=== PATIENT | female | born 1945 | race Caucasian/White ===

== ENCOUNTER 2016-10-11 05:36 | Inpatient (IN) | payer MEDICARE, BC ==
[2016-10-11] MEDS ORDERED: Scopolamine 1.5 MG Transdermal Patch TOP SCH (06:00)
[2016-10-11] MEDS: Lactated Ringers 1,000 ML IV SCH ×2 (06:36→23:00)
[2016-10-11] MEDS ORDERED: Thrombin (Bovine) 5,000 Unit Kit ONE (06:46)
[2016-10-11] MEDS ORDERED: Povidone-Iodine 10% Soln 118.25 ML Bottle ONE (06:46)
[2016-10-11] MEDS ORDERED: ceFAZolin 2 GM in Premix Bag 1 BAG IV ONE (07:15)
[2016-10-11] MEDS ORDERED: Dexamethasone 4 MG/ML SDV ONE (07:21)
[2016-10-11] MEDS ORDERED: Ondansetron 4 MG/2 ML SDV ONE (07:21)
[2016-10-11] MEDS ORDERED: fentaNYL 250 MCG/5 ML SDV ONE ×2 (07:21→08:45)
[2016-10-11] MEDS ORDERED: Rocuronium 50 MG/5 ML Vial ONE ×2 (07:21→08:22)
[2016-10-11] MEDS ORDERED: Neostigmine Methylsulfate 1 MG/ML 5 ML Syringe ONE (07:21)
[2016-10-11] MEDS ORDERED: Propofol 200 MG/20 ML SDV ONE (07:21)
[2016-10-11] MEDS ORDERED: Ketamine 500 MG/5 ML MDV IV SCH (07:45)
[2016-10-11] MEDS ORDERED: Ropivacaine 49.25 ML, Ketorolac 30 MG, EPINEPHrine 0.5 MG, cloNIDine 80 MCG, Sodium Chl... INJECT ONE ×5 (07:45)
[2016-10-11] MEDS ORDERED: Tranexamic Acid 820 MG in Sodium Chloride 0.9% 50 ML IV SCH (07:45)
[2016-10-11] MEDS: ceFAZolin 2 GM in Sodium Chloride 0.9% 50 ML IV ONE ×2 (08:04→12:03)
[2016-10-11] MEDS: Tranexamic Acid 850 MG in Sodium Chloride 0.9% 50 ML IV SCH ×2 (08:05→11:12)
[2016-10-11] MEDS ORDERED: Lactated Ringers 1,000 ML ONE (08:43)
[2016-10-11] MEDS ORDERED: ePHEDrine 50 MG/ML SDV ONE (09:01)
[2016-10-11] MEDS ORDERED: Aluminum Hydroxide/Magnesium Hydroxide/Simethicone Susp 30 ML Cup PO PRN (10:51)
[2016-10-11] MEDS ORDERED: Magnesium Hydroxide 400 MG/5 ML Susp 30 ML Cup PO PRN (10:51)
[2016-10-11] MEDS ORDERED: Sodium Chloride 0.9% 10 ML Syringe FLUSH PRN (10:51)
[2016-10-11] MEDS ORDERED: Sennosides 8.6 MG Tab PO PRN (10:51)
[2016-10-11] MEDS ORDERED: HYDROmorphone 1 MG/ML Syringe IVPUSH PRN (10:51)
[2016-10-11] MEDS ORDERED: Ondansetron 4 MG/2 ML SDV IVPUSH PRN (10:51)
[2016-10-11] MEDS ORDERED: Zolpidem 5 MG Tab PO PRN (10:51)
[2016-10-11] MEDS ORDERED: Naloxone 0.4 MG/ML SDV IVPUSH PRN (10:51)
[2016-10-11] MEDS ORDERED: Bumetanide 1 MG Tab PO PRN (10:55)
[2016-10-11] MEDS ORDERED: Levothyroxine 50 MCG Tab PO SCH (11:00)
[2016-10-11] MEDS ORDERED: ceFAZolin 2 GM in Sodium Chloride 0.9% 50 ML IV SCH (11:00)
[2016-10-11] MEDS ORDERED: fentaNYL 100 MCG/2 ML SDV IVPUSH ONE (11:15)
--- NOTE | 2016-10-11 11:38 | OR ---
DATE OF PROCEDURE: 10/11/2016 PREOPERATIVE DIAGNOSES: 1. L3-L4 and L4-L5 stenosis. 2. L3-L4 and L4-L5 radiculopathy. 3. Spondylolisthesis, L4-L5. POSTOPERATIVE DIAGNOSES: 1. L3-4 and L4-L5 stenosis. 2. L3-4 and L4-L5 radiculopathy. 3. Spondylolisthesis, L4-L5. PROCEDURE: 1. Transforaminal lumbar interbody fusion, L3-L4 and L4-L5. 2. Posterior lateral fusion with interbody device placement, L3-L4, L4-L5. 3. Laminectomy at L3-4 and L4-L5 which was required in addition to the decompression for implantation. 4. Segmental instrumentation, L3-L4 and L4-L5. ANESTHESIA: General endotracheal intubation. FLUID: Lactated Ringer solution. ESTIMATED BLOOD LOSS: 150 mL. COMPLICATIONS: None. SPECIMEN: None. DISCHARGE DISPOSITION: Stable to PACU. INDICATION FOR THE PROCEDURE: The patient is seen preoperatively by myself in the clinic. She was found to have the above-mentioned diagnosis. Preoperative imaging confirmed the above-mentioned diagnosis. Risks and benefits of the procedure were explained to the patient. Informed consent was obtained. DESCRIPTION OF PROCEDURE: The patient was seen preoperatively by myself and the Anesthesia Staff in the preop holding area where the operative site was marked. She was brought to the operative suite by Anesthesia staff where general anesthesia was administered. Neuromonitoring leads were placed. Sterile Martines catheter was placed. The fluoroscopy unit was draped in a sterile manner. The patient was then flipped onto a Shelton table in a prone position with the bed flexed. Neuro monitoring leads were normal at baseline. All extremities found to be well padded. The patient was then prepped and draped in a sterile manner. Time-out was called identifying the correct patient, correct procedure, correct site, and antibiotics had been with appropriate period of time. The fluoroscopy unit was then used in a lateral position to identify the pedicles of L5 through L3. Midline incision was used going over this and then brought down to the deep fascia. Cerebellars were used for retraction. Bleeding was during this case was controlled with Bovie electrocautery, bipolar electrocautery, and an Aquamantys 5.0 unit. Dissection was then carried down over the spinous processes of L3 through L5 with their respective lamina and transverse processes bilaterally. The screws were placed on the left first and then the right. Screw placement was done as follows the facets were cleared of any soft tissue. The facets were then drilled down to the level of the pars and then a small factory laborer hole was made. A PediGuard unit was used for pedicle track placement followed by pedicle probe to ensure that there was no breach followed by stabbing followed by pedicle probe, followed by screw placement. All screws were 50 mm x 6.5 mm, this was done on the left. X-rays were taken on the right. X- rays were taken. All screws tested above 20. We then moved on to our laminectomy. I then cleared all of our soft tissue over the cranial aspect of L5 of the entirety of L4 in the caudal aspect of L3. We then removed the entire spinous process of L4, the caudal aspect of the spinous process of L3 and the cranial aspect of the spinous process of L5. I drilled down the bilateral lamina and then using a Lyn was able to remove the lamina on block without touching the dura. We then carefully removed the caudal aspect of the L3 lamina and the cranial aspect of the L5 lamina to ensure adequate decompression. No durotomy was encountered. I then used a rongeur as well as a drill and Kerrisons to perform facetectomies on the left at L3-L4 and L4-L5. The exiting nerve roots were identified. I stayed to call those and medial to the traversing root. I used dural nerve root retractor and then used a #15 blade to enter the disk space followed by sequential shaving, followed by pituitary curettes and then pituitaries again to remove any disc. There was minimal disc left. I then used a bone funnel to enter the cranial aspect of the space and then tamped the autograft, which had been ground down with a bone mill in combination with Globus Signify allograft. After this was placed in the cranial disc space, I then inserted our spacers. This was an 8 x 22, 8-14 10 degree at L3-4 and a 10 x 26 8-15 10 degree at L4-5. I used fluoroscopy to ensure that we were cranial enough. We then distracted on the expandable spacers. After this had been accomplished, I then irrigated with 2 L of Betadine infused irrigation and then drilled down the transverse processes on the right side as well as the facets and placed the graft over the transverse processes in the posterior lateral gutters. We then attached our tulips to our Creo amp screws followed by attachment of a 60 mm soledad on the left and a 65 mm soledad on the right. These were torqued. I did have some reduction on the left side from the spondylolisthesis. We then took final films. We then closed with #2 Vicryl in an interlocking manner followed by #2 Vicryl in a running manner followed by another liter of Betadine infused irrigation followed by deep subcu 0 interrupted sutures followed by superficial 2-0 interrupted sutures followed by Monocryl followed by sterile dressing. Neuromonitoring were discontinued, was normal throughout the case except at one point, where there was an anterior tip response on the right just for a few moments, which went away almost instantly with different track placement of the PediGuard. We then flipped the patient back into the hospital bed to remove neuro monitoring leads and then taken to the PACU in stable condition. Nicanor Luis DO /[id number]
[2016-10-11] MEDS: Levothyroxine 50 MCG Tab PO SCH (13:57)
[2016-10-11] MEDS: ceFAZolin 2 GM in Sodium Chloride 0.9% 50 ML IV SCH (15:53)
[2016-10-11] MEDS: Acetaminophen/oxyCODONE 325-5 MG Tab PO PRN (18:07)
[2016-10-12] MEDS: ceFAZolin 2 GM in Sodium Chloride 0.9% 50 ML IV SCH ×2 (00:10→08:33)
[2016-10-12] MEDS: Aspirin 81 MG Tab.Chew PO SCH (08:29)
[2016-10-12] MEDS: Levothyroxine 50 MCG Tab PO SCH (08:30)
[2016-10-12] MEDS: Atenolol 50 MG Tab PO SCH (08:30)
[2016-10-12] MEDS ORDERED: Atenolol 50 MG Tab PO SCH (09:00)
[2016-10-12] MEDS ORDERED: Aspirin 81 MG Tab.Chew PO SCH (09:00)
[2016-10-12] MEDS ORDERED: Simvastatin 20 MG Tab PO SCH ×3 (09:00→21:00)
[2016-10-12] MEDS: Acetaminophen/oxyCODONE 325-5 MG Tab PO PRN (13:48)
[2016-10-12] MEDS: Polyethylene Glycol 3350 Powder 17 GM Packet PO SCH (16:51)
[2016-10-13] MEDS: Acetaminophen/oxyCODONE 325-5 MG Tab PO PRN ×2 (00:42→08:05)
[2016-10-13 07:19] VITALS: BP 165/78
[2016-10-13] MEDS: Levothyroxine 50 MCG Tab PO SCH (08:05)
[2016-10-13] MEDS: Aspirin 81 MG Tab.Chew PO SCH (08:05)
[2016-10-13] MEDS: Atenolol 50 MG Tab PO SCH (08:05)
[2016-10-13] MEDS: Polyethylene Glycol 3350 Powder 17 GM Packet PO SCH (08:06)
--- NOTE | 2016-10-26 14:42 | PCM.PN ---
- General Info Date of Service: 09/12/16 Functional Status: Reports: Pain Controlled, Tolerating Diet, Ambulating, Urinating - Patient Data Vitals - Most Recent: Last Vital Signs Temp 38.1 C 10/13/16 07:18 Pulse 83 10/13/16 08:05 Resp 16 10/13/16 07:18 BP 165/78 H 10/13/16 08:05 Pulse Ox 94 L 10/13/16 07:18 Weight - Most Recent: 189 lb 3.2 oz Med Orders - Current: Current Medications Discontinued Medications Al Hydroxide/Mg Hydroxide (Mag-Al Plus) 30 ml PO Q4H PRN PRN Reason: Indigestion Aspirin (Aspirin) 81 mg PO DAILY [facility] Aspirin (Aspirin) 81 mg PO DAILY [facility] Last Admin: 10/13/16 08:05 Dose: 81 mg Atenolol (Tenormin) 50 mg PO DAILY [facility] Atenolol (Tenormin) 50 mg PO DAILY [facility] Last Admin: 10/13/16 08:05 Dose: 50 mg Bumetanide (Bumex) 0.5 mg PO DAILY PRN PRN Reason: Edema Ropivacaine 49.25 ml/Ketorolac Tromethamine 30 mg/Epinephrine HCl 0.5 mg/ Clonidine HCl 80 mcg/ Sodium Chloride 48.45 ml 0 ml INJECT ONETIME ONE Stop: 10/11/16 07:46 Last Admin: 10/11/16 08:54 Dose: 100 ml Dexamethasone (Dexamethasone) Confirm Administered Dose 4 mg .ROUTE .STK-MED ONE Stop: 10/11/16 07:22 Diazepam (Valium) 5 mg IVPUSH Q6H PRN PRN Reason: Spasms Ephedrine Sulfate (Ephedrine Sulfate) Confirm Administered Dose 50 mg .ROUTE .STK-MED ONE Stop: 10/11/16 09:02 Fentanyl (Sublimaze) Confirm Administered Dose 250 mcg .ROUTE .STK-MED ONE Stop: 10/11/16 07:22 Fentanyl (Sublimaze) Confirm Administered Dose 250 mcg .ROUTE .STK-MED ONE Stop: 10/11/16 08:46 Fentanyl (Sublimaze) 100 mcg IVPUSH ONETIME ONE Stop: 10/11/16 11:16 Last Admin: 10/11/16 11:09 Dose: 100 mcg Glycopyrrolate () Confirm Administered Dose 1 mg .ROUTE .STK-MED ONE Stop: 10/11/16 07:22 Hydromorphone HCl (Dilaudid) 1 mg IVPUSH Q2H PRN PRN Reason: Pain Lactated Ringer's (Ringers, Lactated) 1,000 mls [facility] 25 [facility] Last Admin: 10/11/16 23:00 Dose: 25 mls/hr Cefazolin Sodium 2 gm/ Sodium (Chloride) 50 mls @ 100 mls/hr IV ONETIME ONE Stop: 10/11/16 07:44 Last Admin: 10/11/16 12:03 Dose: Not Given Ketamine HCl 100 mg/ Sodium (Chloride) 100 mls @ 15 mls/hr IV ASDIRECTED [facility] Tranexamic Acid 850 mg/ Sodium (Chloride) 58.5 mls @ 234 mls/hr IV Q3H [facility] Stop: 10/11/16 10:59 Last Admin: 10/11/16 11:12 Dose: 234 mls/hr Lactated Ringer's (Ringers, Lactated) Confirm Administered Dose 1,000 mls @ as directed .ROUTE .[facility] ONE Stop: 10/11/16 08:44 Cefazolin Sodium 2 gm/ Sodium (Chloride) 50 mls @ 100 mls/hr IV Q8H [facility] Stop: 10/12/16 03:29 Last Admin: 10/11/16 13:29 Dose: Not Given Cefazolin Sodium 2 gm/ Sodium (Chloride) 50 mls @ 100 mls/hr IV Q8H [facility] Stop: 10/12/16 08:29 Last Admin: 10/12/16 08:33 Dose: 100 mls/hr Ketamine HCl (Ketalar) 27 mg IV ASDIRECTED [facility] Levothyroxine Sodium (Synthroid) 50 mcg PO [facility] Last Admin: 10/11/16 13:29 Dose: Not Given Levothyroxine Sodium (Synthroid) 50 mcg PO [facility] Last Admin: 10/13/16 08:05 Dose: 50 mcg Magnesium Hydroxide (Milk Of Magnesia) 30 ml PO BID PRN PRN Reason: Constipation Naloxone HCl (Narcan) 0.2 mg IVPUSH ONETIME PRN PRN Reason: Oversedation Stop: 10/11/16 10:52 Neostigmine Methylsulfate (Neostigmine) Confirm Administered Dose 5 mg .ROUTE .STK-MED ONE Stop: 10/11/16 07:22 Ondansetron HCl (Zofran) Confirm Administered Dose 4 mg .ROUTE .STK-MED ONE Stop: 10/11/16 07:22 Ondansetron HCl (Zofran) 8 mg IVPUSH Q4H PRN PRN Reason: Nausea/Vomiting Oxycodone/Acetaminophen (Percocet 325-5 Mg) 2 tab PO Q4H PRN PRN Reason: Pain Last Admin: 10/13/16 08:05 Dose: 1 tab Polyethylene Glycol (Miralax) 17 gm PO DAILY [facility] Last Admin: 10/13/16 08:06 Dose: Not Given Povidone Iodine (Betadine 10% Soln) Confirm Administered Dose 1 ml .ROUTE .STK- MED ONE Stop: 10/11/16 06:47 Last Admin: 10/11/16 08:20 Dose: 30 ml Propofol (Diprivan 20 Ml) Confirm Administered Dose 200 mg .ROUTE .STK-MED ONE Stop: 10/11/16 07:22 Rocuronium [place] (Zemuron) Confirm Administered Dose 50 mg .ROUTE .STK-MED ONE Stop: 10/11/16 07:22 Rocuronium [place] (Zemuron) Confirm Administered Dose 50 mg .ROUTE .STK-MED ONE Stop: 10/11/16 08:23 Scopolamine (Transderm-Scop) 1.5 mg TOP Q72H [facility] Stop: 10/14/16 02:00 Last Admin: 10/11/16 07:14 Dose: 1.5 mg Senna (Senna) 8.6 mg PO BID PRN PRN Reason: Constipation Simvastatin (Zocor) 20 mg PO DAILY [facility] Simvastatin (Zocor) 20 mg PO BEDTIME [facility] Last Admin: 10/12/16 20:18 Dose: 20 mg Sodium Chloride (Saline Flush) 10 ml FLUSH ASDIRECTED PRN PRN Reason: Keep Vein Open Thrombin (Thrombin-Jmi) Confirm Administered Dose 15,000 unit .ROUTE .STK-MED ONE Stop: 10/11/16 06:47 Last Admin: 10/11/16 08:20 Dose: 15,000 unit Zolpidem Tartrate (Ambien) 5 mg PO BEDTIME PRN PRN Reason: Sleep - Exam General: Alert, Oriented Back Exam: Normal Inspection Extremities: Normal Inspection Skin: Warm, Dry, Intact Wound/Incisions: Healing Well, Dressing Dry and Intact Neurological: No New Focal Deficit, Strength Equal Bilateral, Reflexes Equal Bilateral - Problem List & Annotations (1) S/P lumbar spinal fusion SNOMED Code(s): 23744414991410, 626436978, [id number], [id number] Code(s): Z98.1 - ARTHRODESIS STATUS Status: Acute Annotation/Comment:: TLIF L3 - L4 - Problem List Review Problem List Initiated/Reviewed/Updated: Yes - Plan Plan:: Jennifer is a pleasant 60-year-old female who is status postop day 1 of the lumbar fusion. She is doing very well. Patient continues work with PT OT with no difficulties. Her pain is under control with oral pain medication at this time. We'll continue to work on a bowel movement.
--- NOTE | 2016-10-26 14:44 | PCM.DCSUM1 ---
Discharge Summary - Hospital Course Free Text/Narrative:: at this time Jennifer is doing very well. She is postop day 2 of a lumbar fusion. She is feeling well and is having no issues. She states her pain is under control. patient continues to work with PT OT with no difficulties. She continues to wear her brace with no pain. She takes Percocet as needed for pain. We'll plan on discharging her home today with assistance of her . She will get Percocet and Valium to take home. She'll follow-up with us in 1 month. - Discharge Data Discharge Date: 09/13/16 Discharge Disposition: Home, Self-Care 01 Condition: Good - Discharge Diagnosis/Problem(s) (1) S/P lumbar spinal fusion SNOMED Code(s): 18549308844011, [id number], [id number], [id number] ICD Code: Z98.1 - ARTHRODESIS STATUS Status: Acute Problem Details: TLIF L3 - L4 - Patient Summary/Data Consults: Consultations 10/11/16 10:51 OT Evaluation and Treatment [CONS] Routine Please Evaluate and Treat. OT Reason for Consult: Strengthening This query below is only for informational purposes and is not editable. PT Evaluation and Treatment [CONS] Routine Please Evaluate and Treat. PT Reason for Consult: Strengthening This query below is only for informational purposes and is not editable. - Discharge Plan Prescriptions/Med Rec: Acetaminophen/oxyCODONE [Percocet 325-5 MG] 1 tab PO Q6HR PRN #90 tablet PRN Reason: Pain Home Medications: Home Meds Aspirin 81 mg PO DAILY 11/07/13 [History] Atenolol [Tenormin] 50 mg PO DAILY 11/07/13 [History] Bumetanide 0.5 mg PO DAILY PRN 11/07/13 [History] Levothyroxine [Synthroid] 50 mcg PO [facility] 11/07/13 [History] Simvastatin [Zocor] 20 mg PO DAILY 11/07/13 [History] Acetaminophen/oxyCODONE [Percocet 325-5 MG] 1 tab PO Q6HR PRN #90 tablet [Rx] Referrals: Nicanor Luis DO [Physician] - (1 month recheck) - Patient Data Vitals - Most Recent: Last Vital Signs Temp 38.1 C 10/13/16 07:18 Pulse 83 10/13/16 08:05 Resp 16 10/13/16 07:18 BP 165/78 H 10/13/16 08:05 Pulse Ox 94 L 10/13/16 07:18 Weight - Most Recent: 189 lb 3.2 oz Med Orders - Current: Current Medications Discontinued Medications Al Hydroxide/Mg Hydroxide (Mag-Al Plus) 30 ml PO Q4H PRN PRN Reason: Indigestion Aspirin (Aspirin) 81 mg PO DAILY [facility] Aspirin (Aspirin) 81 mg PO DAILY [facility] Last Admin: 10/13/16 08:05 Dose: 81 mg Atenolol (Tenormin) 50 mg PO DAILY [facility] Atenolol (Tenormin) 50 mg PO DAILY [facility] Last Admin: 10/13/16 08:05 Dose: 50 mg Bumetanide (Bumex) 0.5 mg PO DAILY PRN PRN Reason: Edema Ropivacaine 49.25 ml/Ketorolac Tromethamine 30 mg/Epinephrine HCl 0.5 mg/ Clonidine HCl 80 mcg/ Sodium Chloride 48.45 ml 0 ml INJECT ONETIME ONE Stop: 10/11/16 07:46 Last Admin: 10/11/16 08:54 Dose: 100 ml Dexamethasone (Dexamethasone) Confirm Administered Dose 4 mg .ROUTE .STK-MED ONE Stop: 10/11/16 07:22 Diazepam (Valium) 5 mg IVPUSH Q6H PRN PRN Reason: Spasms Ephedrine Sulfate (Ephedrine Sulfate) Confirm Administered Dose 50 mg .ROUTE .STK-MED ONE Stop: 10/11/16 09:02 Fentanyl (Sublimaze) Confirm Administered Dose 250 mcg .ROUTE .STK-MED ONE Stop: 10/11/16 07:22 Fentanyl (Sublimaze) Confirm Administered Dose 250 mcg .ROUTE .STK-MED ONE Stop: 10/11/16 08:46 Fentanyl (Sublimaze) 100 mcg IVPUSH ONETIME ONE Stop: 10/11/16 11:16 Last Admin: 10/11/16 11:09 Dose: 100 mcg Glycopyrrolate () Confirm Administered Dose 1 mg .ROUTE .STK-MED ONE Stop: 10/11/16 07:22 Hydromorphone HCl (Dilaudid) 1 mg IVPUSH Q2H PRN PRN Reason: Pain Lactated Ringer's (Ringers, Lactated) 1,000 mls @ 25 mls/hr IV ASDIRECTED [facility] Last Admin: 10/11/16 23:00 Dose: 25 mls/hr Cefazolin Sodium 2 gm/ Sodium (Chloride) 50 mls @ 100 mls/hr IV ONETIME ONE Stop: 10/11/16 07:44 Last Admin: 10/11/16 12:03 Dose: Not Given Ketamine HCl 100 mg/ Sodium (Chloride) 100 mls @ 15 mls/hr IV ASDIRECTED [facility] Tranexamic Acid 850 mg/ Sodium (Chloride) 58.5 mls @ 234 mls/hr IV Q3H [facility] Stop: 10/11/16 10:59 Last Admin: 10/11/16 11:12 Dose: 234 mls/hr Lactated Ringer's (Ringers, Lactated) Confirm Administered Dose 1,000 mls @ as directed .ROUTE .STK-MED ONE Stop: 10/11/16 08:44 Cefazolin Sodium 2 gm/ Sodium (Chloride) 50 mls @ 100 mls/hr IV Q8H [facility] Stop: 10/12/16 03:29 Last Admin: 10/11/16 13:29 Dose: Not Given Cefazolin Sodium 2 gm/ Sodium (Chloride) 50 mls @ 100 mls/hr IV Q8H [facility] Stop: 10/12/16 08:29 Last Admin: 10/12/16 08:33 Dose: 100 mls/hr [facility]) [facility] Levothy[facility]ine Sodium (Synthroid) [address] [facility] Last Admin: 10/11/16 13:29 Dose: Not Given Levothyroxine Sodium (Synthroid) [address] [facility] Last Admin: 10/13/16 08:05 Dose: 50 mcg Magnesium Hydroxide (Milk Of Magnesia) 30 ml PO BID PRN PRN Reason: Constipation Naloxone HCl (Narcan) 0.2 mg IVPUSH ONETIME PRN PRN Reason: Oversedation Stop: 10/11/16 10:52 Neostigmine Methylsulfate (Neostigmine) Confirm Administered Dose 5 mg .ROUTE .STK-MED ONE Stop: 10/11/16 07:22 Ondansetron HCl (Zofran) Confirm Administered Dose 4 mg .ROUTE .STK-MED ONE Stop: 10/11/16 07:22 Ondansetron HCl (Zofran) 8 mg IVPUSH Q4H PRN PRN Reason: Nausea/Vomiting Oxycodone/Acetaminophen (Percocet 325-5 Mg) 2 tab PO Q4H PRN PRN Reason: Pain Last Admin: 10/13/16 08:05 Dose: 1 tab Polyethylene Glycol (Miralax) 17 gm PO DAILY [facility] Last Admin: 10/13/16 08:06 Dose: Not Given Povidone Iodine (Betadine 10% Soln) Confirm Administered Dose 1 ml .ROUTE .STK- MED ONE Stop: 10/11/16 06:47 Last Admin: 10/11/16 08:20 Dose: 30 ml Propofol (Diprivan 20 Ml) Confirm Administered Dose 200 mg .ROUTE .STK-MED ONE Stop: 10/11/16 07:22 Rocuronium [place] (Zemuron) Confirm Administered Dose 50 mg .ROUTE .STK-MED ONE Stop: 10/11/16 07:22 Rocuronium [place] (Zemuron) Confirm Administered Dose 50 mg .ROUTE .STK-MED ONE Stop: 10/11/16 08:23 Scopolamine (Transderm-Scop) 1.5 mg TOP Q72H [facility] Stop: 10/14/16 02:00 Last Admin: 10/11/16 07:14 Dose: 1.5 mg Senna (Senna) 8.6 mg PO BID PRN PRN Reason: Constipation Simvastatin (Zocor) 20 mg PO DAILY [facility] Simvastatin (Zocor) 20 mg PO BEDTIME [facility] Last Admin: 10/12/16 20:18 Dose: 20 mg Sodium Chloride (Saline Flush) 10 ml FLUSH ASDIRECTED PRN PRN Reason: Keep Vein Open Thrombin (Thrombin-Jmi) Confirm Administered Dose 15,000 unit .ROUTE .STK-MED ONE Stop: 10/11/16 06:47 Last Admin: 10/11/16 08:20 Dose: 15,000 unit Zolpidem Tartrate (Ambien) 5 mg PO BEDTIME PRN PRN Reason: Sleep - Exam General: Reports: Alert, Oriented Extremities: Normal Inspection Skin: Reports: Warm, Dry, Intact Wound/Incisions: Reports: Healing Well Neurological: Reports: No New Focal Deficit, Normal Gait, Strength Equal Bilateral, Reflexes Equal Bilateral Psy/Mental Status: Reports: Alert *Q Meaningful Use (DIS) - VTE *Q VTE Criteria *Q: - Stroke *Q Stroke Criteria *Q: - AMI *Q AMI Criteria *Q:
== END 2016-10-13 11:16 | disposition home or self-care (01) | DRG 460 ==
LOC: JP.SDSSCHI 05:36 → JP.SDS 05:36 → EDSTATUS 08:30 → JP.MS 10:51
PROVIDERS: ADMIT Orthopaedic Surgery; ATTEND Orthopaedic Surgery
PROC: 0SG10A1 (ICD-10-PCS; principal; 2016-10-11)
PROC: 01NB0ZZ Release Lumbar Nerve, Open Approach (ICD-10-PCS; 2016-10-11)
PROC: 0ST20ZZ Resection of Lumbar Vertebral Disc, Open Approach (ICD-10-PCS; 2016-10-11)
PROC: 0SH208Z Insertion of Spacer into Lumbar Vertebral Disc, Open Approach (ICD-10-PCS; 2016-10-11)
DX: M48.06 Spinal stenosis, lumbar region (principal); M43.16 Spondylolisthesis, lumbar region; M54.16 Radiculopathy, lumbar region; E78.00 Pure hypercholesterolemia, unspecified; I10 Essential (primary) hypertension; E11.9 Type 2 diabetes mellitus without complications; E20.9 Hypoparathyroidism, unspecified; Z79.899 Other long term (current) drug therapy
CPT/HCPCS: 36415; 36430; 76001; 80048; 85025; 94762; 97110-GP; 97116-GP; 97162-GP; 97165-GO; 97530-GP; 97535-GP; A9270-GY; C1713; J0690; J1100; J2405; J2704; J2795; J3010; J7030; J7050; J7120; P9017

== ENCOUNTER 2019-05-01 07:34 | Day surgery (SDC) | payer MEDICARE, BC ==
[2019-05-01] MEDS ORDERED: Dextrose 5%-Lactated Ringers 1,000 ML IV SCH (08:15)
[2019-05-01] MEDS ORDERED: Midazolam 1 MG/ML 2 ML SDV ONE (08:41)
[2019-05-01] MEDS ORDERED: fentaNYL 100 MCG/2 ML SDV ONE (08:41)
[2019-05-01] MEDS ORDERED: Propofol 200 MG/20 ML SDV ONE (08:42)
[2019-05-01 10:13] VITALS: BP 143/76; PULSE 66
--- NOTE | 2019-05-11 15:49 | OR ---
DATE OF PROCEDURE: 05/01/2019 SURGEON: Dustin Luis MD PREOPERATIVE DIAGNOSES: 1. Indications for screening colonoscopy. 2. History of colon polyps. POSTOPERATIVE DIAGNOSES: 1. Indications for screening colonoscopy. 2. History of colon polyps. 3. Single small sessile polyp involving splenic flexure of colon. OPERATIVE PROCEDURE: Flexible colonoscopy with: 1. Polypectomy by snare technique ([id number]). 2. Injection of Bridget ink in the submucosa adjacent to biopsy site ([id number]). ANESTHESIA: IV sedation. INDICATIONS FOR PROCEDURE: A 73-year-old female presenting for followup colonoscopy, who also has a history of colon polyps, and plan is to proceed with a colonoscopy with biopsies and/or polypectomy as indicated. Potential risks including bleeding and perforation were discussed, and the patient wishes to proceed. DETAILS OF PROCEDURE: The patient was taken to the operating room and placed in a left lateral decubitus position. IV sedation was administered after which the initial digital rectal exam was performed, which was unremarkable. Colonoscope was then passed into the rectum with retroflexion revealing uncomplicated hemorrhoidal columns. The scope was eventually passed to the level of the cecum. The prep was fairly good with only a small amount of liquid stool present. To that level, the patient was noted to have no diverticular disease and no areas of colitis. There was a single sessile polyp located in the splenic flexure. This was removed by means of snare technique using 2 passes of the snare in order to obtain what appeared to be complete removal of the polyp. Good hemostasis was noted at that point, and 2 mL of Bridget ink was injected in the submucosa adjacent to the polypectomy site for identification in the event that the lesion might come back malignant. Following this, the scope was withdrawn in the remainder of the length of the colon and rectum with no additional abnormalities noted, and the procedure was then concluded. Given the sessile nature of this polyp, if this is nonmalignant, a followup colonoscopy should probably be undertaken in 2 years. Dustin Luis MD /[id number]
== END 2019-05-01 10:50 | disposition home or self-care (01) ==
LOC: JP.SDS 07:34
PROVIDERS: ATTEND Surgery
DX: Z12.11 Encounter for screening for malignant neoplasm of colon (principal); D12.3 Benign neoplasm of transverse colon; K64.9 Unspecified hemorrhoids; E78.5 Hyperlipidemia, unspecified; I10 Essential (primary) hypertension; E66.9 Obesity, unspecified; Z86.010 Personal history of colon polyps; Z68.31 Body mass index [BMI] 31.0-31.9, adult
CPT/HCPCS: 45381; 45385; 88305; J2250; J2704; J3010; J7121

== ENCOUNTER 2021-10-13 10:32 | Day surgery (SDC) | payer MEDICARE, BC ==
[2021-10-13] MEDS ORDERED: Midazolam 1 MG/ML 2 ML SDV ONE (11:28)
[2021-10-13] MEDS ORDERED: Propofol 200 MG/20 ML SDV ONE (11:28)
[2021-10-13] MEDS ORDERED: fentaNYL 100 MCG/2 ML SDV ONE (11:28)
[2021-10-13] MEDS ORDERED: Lactated Ringers 1,000 ML IV SCH (11:45)
[2021-10-13 14:34] VITALS: BP 119/71; PULSE 65
== END 2021-10-13 15:14 | disposition home or self-care (01) ==
LOC: JP.SDS 10:32
PROVIDERS: ATTEND Family Medicine
DX: Z12.11 Encounter for screening for malignant neoplasm of colon (principal); D12.2 Benign neoplasm of ascending colon; D12.5 Benign neoplasm of sigmoid colon; I10 Essential (primary) hypertension; E78.5 Hyperlipidemia, unspecified; Z98.890 Other specified postprocedural states
CPT/HCPCS: 45380; 45381; J2250; J2704; J3010; J7120

== ENCOUNTER 2021-11-25 08:09 | Inpatient (IN) | payer MEDICARE, BC ==
[~2021-11-25 08:09] MED LIST: Dexamethasone 4 MG/ML SDV ONE; Glycopyrrolate 0.2 MG/ML 5 ML MDV ONE; Neostigmine Methylsulfate 1 MG/ML 5 ML Syringe ONE; Ondansetron 4 MG/2 ML SDV ONE; Propofol 200 MG/20 ML SDV ONE; Rocuronium 50 MG/5 ML Vial ONE; Succinylcholine 200 MG/10 ML MDV ONE; fentaNYL 250 MCG/5 ML SDV ONE
[2021-11-25] MEDS: Meropenem 500 MG SDV ONE ×2 (08:26→11:10)
[2021-11-25] MEDS ORDERED: Acetaminophen 500 MG Tab PO ONE (08:45)
[2021-11-25] MEDS ORDERED: Naloxone 0.4 MG/ML SDV IVPUSH PRN ×2 (09:00→11:22)
[2021-11-25] MEDS ORDERED: Dextrose 5%-Lactated Ringers 1,000 ML IV SCH (09:30)
[2021-11-25] MEDS ORDERED: fentaNYL 250 MCG/5 ML SDV ONE (09:58)
[2021-11-25] MEDS ORDERED: Rocuronium 50 MG/5 ML Vial ONE (09:58)
[2021-11-25] MEDS ORDERED: Ropivacaine 40 ML, dexAMETHasone 8 MG, EPINEPHrine 0.4 MG, Sodium Chloride 0.9% 37.6 ML NERVRT SCH ×4 (10:00)
[2021-11-25] MEDS ORDERED: cefOXitin 2 GM in Sodium Chloride 0.9% 50 ML IV ONE (10:00)
[2021-11-25] MEDS ORDERED: fentaNYL 2,500 MCG in Sodium Chloride 0.9% 200 ML EPIDUR SCH (10:00)
[2021-11-25] MEDS ORDERED: Ketamine 500 MG/5 ML MDV IV SCH (10:15)
[2021-11-25] MEDS ORDERED: Ketamine 16 MG in Sodium Chloride 0.9% 19.84 ML IV SCH (10:15)
[2021-11-25] MEDS ORDERED: Ondansetron 4 MG/2 ML SDV IVPUSH PRN ×2 (11:22→14:36)
[2021-11-25] MEDS ORDERED: diphenhydrAMINE 25 MG Cap PO PRN (11:22)
[2021-11-25] MEDS ORDERED: diphenhydrAMINE 50 MG/ML SDV IVPUSH PRN (11:22)
[2021-11-25] MEDS ORDERED: HYDROmorphone/Normal Saline 6 MG/30 ML PCA Vial IV PRN ×2 (11:22→14:32)
[2021-11-25] MEDS ORDERED: Lactated Ringers 1,000 ML ONE (11:36)
[2021-11-25] MEDS ORDERED: fentaNYL 100 MCG/2 ML SDV ONE (12:12)
[2021-11-25] MEDS ORDERED: hydrOXYzine HCL 100 MG/2 ML SDV IM PRN (14:35)
[2021-11-25] MEDS ORDERED: Scopolamine 1.5 MG Transdermal Patch TOP SCH (16:00)
[2021-11-25] MEDS: Pantoprazole 40 MG Vial IV SCH (16:33)
[2021-11-25] MEDS: Acetaminophen 500 MG Tab PO SCH ×2 (16:34→21:42)
[2021-11-25] MEDS: cefOXitin 2 GM in Sodium Chloride 0.9% 50 ML IV SCH ×2 (16:34→21:40)
[2021-11-25] MEDS: Dextrose 5%-Lactated Ringers 1,000 ML IV SCH (18:17)
[2021-11-25] MEDS: atorvaSTATin 10 MG Tab PO SCH (21:42)
[2021-11-26] MEDS: Dextrose 5%-Lactated Ringers 1,000 ML IV SCH ×4 (00:34→22:23)
[2021-11-26] MEDS: cefOXitin 2 GM in Sodium Chloride 0.9% 50 ML IV SCH ×4 (04:41→22:20)
[2021-11-26] MEDS: Acetaminophen 500 MG Tab PO SCH ×4 (04:42→22:15)
[2021-11-26] MEDS: Levothyroxine 25 MCG Tab PO SCH (06:54)
[2021-11-26] MEDS: Aspirin 81 MG Tab.EC PO SCH (09:26)
[2021-11-26] MEDS: Non-Formulary Medication 1 Each TOP SCH (09:27)
[2021-11-26] MEDS: Metoprolol Succinate 50 MG Tab.ER PO SCH (09:28)
[2021-11-26] MEDS: Pantoprazole 40 MG Vial IV SCH (17:16)
[2021-11-26] MEDS: atorvaSTATin 10 MG Tab PO SCH (22:15)
[2021-11-27] MEDS: cefOXitin 2 GM in Sodium Chloride 0.9% 50 ML IV SCH ×2 (04:10→10:39)
[2021-11-27] MEDS: Acetaminophen 500 MG Tab PO SCH ×4 (04:11→21:18)
[2021-11-27] MEDS ORDERED: Bupivacaine 0.5% 30 ML SDV ONE (06:38)
[2021-11-27] MEDS ORDERED: Meropenem 500 MG SDV ONE (06:38)
[2021-11-27] MEDS ORDERED: Lidocaine 1% with EPINEPHrine 1:100,000 50 ML MDV ONE (06:38)
[2021-11-27] MEDS ORDERED: Propofol 200 MG/20 ML SDV ONE (07:24)
[2021-11-27] MEDS ORDERED: fentaNYL 100 MCG/2 ML SDV ONE (07:24)
[2021-11-27] MEDS ORDERED: HYDROmorphone 2 MG Tab PO PRN (10:01)
[2021-11-27] MEDS: Aspirin 81 MG Tab.EC PO SCH (10:16)
[2021-11-27] MEDS: Levothyroxine 25 MCG Tab PO SCH (10:16)
[2021-11-27] MEDS: Non-Formulary Medication 1 Each TOP SCH (10:16)
[2021-11-27] MEDS: Dextrose 5%-Lactated Ringers 1,000 ML IV SCH (12:19)
[2021-11-27] MEDS: Metoprolol Succinate 50 MG Tab.ER PO SCH (12:49)
[2021-11-27] MEDS: Pantoprazole 40 MG Tab.CR PO SCH (16:02)
[2021-11-27] MEDS: atorvaSTATin 10 MG Tab PO SCH (21:18)
[2021-11-28] MEDS: Acetaminophen 500 MG Tab PO SCH ×2 (04:08→10:00)
[2021-11-28] MEDS: Metoprolol Succinate 50 MG Tab.ER PO SCH ×2 (07:19→10:21)
[2021-11-28 07:21] VITALS: BP 189/69; PULSE 74
[2021-11-28] MEDS: Levothyroxine 25 MCG Tab PO SCH (08:10)
[2021-11-28] MEDS: Non-Formulary Medication 1 Each TOP SCH (08:11)
[2021-11-28] MEDS: Aspirin 81 MG Tab.EC PO SCH (08:11)
[2021-11-28] MEDS: Pantoprazole 40 MG Tab.CR PO SCH (08:12)
== END 2021-11-28 10:35 | disposition home or self-care (01) | DRG 331 ==
LOC: JP.SDS 08:09 → EDSTATUS 10:30 → JP.MS 11:40
PROVIDERS: ADMIT Surgery; ATTEND Surgery
PROC: 0DBN0ZZ Excision of Sigmoid Colon, Open Approach (ICD-10-PCS; principal; 2021-11-25)
PROC: 0DBP0ZZ Excision of Rectum, Open Approach (ICD-10-PCS; 2021-11-25)
PROC: 0DBW0ZZ Excision of Peritoneum, Open Approach (ICD-10-PCS; 2021-11-25)
PROC: 3E0M05Z Introduction of Adhesion Barrier into Peritoneal Cavity, Open Approach (ICD-10-PCS; 2021-11-25)
PROC: 0DJD8ZZ Inspection of Lower Intestinal Tract, Via Natural or Artificial Opening Endoscopic (ICD-10-PCS; 2021-11-25)
PROC: 0WQF0ZZ Repair Abdominal Wall, Open Approach (ICD-10-PCS; 2021-11-27)
DX: D12.7 Benign neoplasm of rectosigmoid junction (principal); E78.5 Hyperlipidemia, unspecified; E66.9 Obesity, unspecified; E55.9 Vitamin D deficiency, unspecified; E03.9 Hypothyroidism, unspecified; I10 Essential (primary) hypertension; Z68.29 Body mass index [BMI] 29.0-29.9, adult
CPT/HCPCS: 88305; 88307; 88341; 88342; 93005; A9270-GY; C9113; J0171; J0330; J0694; J1100; J1170; J2185; J2405; J2704; J2710; J2795; J3010; J3490; J7120; J7121

== ENCOUNTER 2022-12-11 06:24 | Day surgery (SDC) | payer MEDICARE, BC ==
[2022-12-11] MEDS ORDERED: Dextrose 5%-Lactated Ringers 1,000 ML IV SCH (07:00)
[2022-12-11] MEDS ORDERED: ceFAZolin 2 GM in Premix Bag 1 BAG IV ONE (07:00)
[2022-12-11] MEDS ORDERED: Lidocaine 1% with EPINEPHrine 1:100,000 50 ML MDV ONE (07:01)
[2022-12-11] MEDS ORDERED: fentaNYL 100 MCG/2 ML SDV ONE (07:10)
[2022-12-11] MEDS ORDERED: Propofol 200 MG/20 ML SDV ONE (07:10)
[2022-12-11] MEDS ORDERED: Midazolam 1 MG/ML 2 ML SDV ONE (07:10)
[2022-12-11] MEDS ORDERED: Lidocaine 0.5% 50 ML SDV ONE (07:12)
[2022-12-11] MEDS ORDERED: HYDROmorphone 2 MG Tab PO ONE (09:04)
[2022-12-11 09:48] VITALS: BP 150/58; PULSE 57
== END 2022-12-11 10:06 | disposition home or self-care (01) ==
LOC: JP.SDS 06:24
PROVIDERS: ATTEND Surgery
DX: G56.02 Carpal tunnel syndrome, left upper limb (principal); I10 Essential (primary) hypertension; R73.03 Prediabetes; E03.9 Hypothyroidism, unspecified; E66.9 Obesity, unspecified; Z68.31 Body mass index [BMI] 31.0-31.9, adult
CPT/HCPCS: 64721; A9270; J0690; J2250; J2704; J3010; J7121

== ENCOUNTER 2023-01-01 07:17 | Day surgery (SDC) | payer MEDICARE, BC ==
[2023-01-01] MEDS ORDERED: Dextrose 5%-Lactated Ringers 1,000 ML IV SCH (08:00)
[2023-01-01] MEDS ORDERED: fentaNYL 100 MCG/2 ML SDV ONE (08:01)
[2023-01-01] MEDS ORDERED: Propofol 200 MG/20 ML SDV ONE (08:01)
[2023-01-01 10:44] VITALS: BP 144/58; PULSE 62
== END 2023-01-01 11:11 | disposition home or self-care (01) ==
LOC: JP.SDS 07:17
PROVIDERS: ATTEND Surgery
DX: Z12.11 Encounter for screening for malignant neoplasm of colon (principal); K64.9 Unspecified hemorrhoids; R73.03 Prediabetes; E03.9 Hypothyroidism, unspecified; E66.9 Obesity, unspecified; Z68.29 Body mass index [BMI] 29.0-29.9, adult; Z86.010 Personal history of colon polyps
CPT/HCPCS: G0105; J2704; J3010; J7121